=== PATIENT | female | born 1980 | race African-American/Black ===

== ENCOUNTER 2017-02-05 22:02 | Observation (INO) ==
[2017-02-05 22:47] LABS: Basophils % 0.2 % (0.0-0.8); Eosinophils # 0.2 10*3/uL (0.0-0.87); Eosinophils % 1.6 % (0.00-10.9); Hematocrit 37.2 VOL% (35.7-47.0); Hemoglobin 12.9 GM/DL (12.0-16.0); Immature Granulocytes % 0.3 %; Immature Granulocytes Absolute 0.04 #; Lymphocytes # 3.7 10*3/uL (1.4-4.0); Lymphocytes % 29.2 % (21.3-54.2); Mean Corpuscular HGB Conc 34.7 GM/DL (32-36); Mean Corpuscular Hemoglobin 29 PG (27-34); Mean Corpuscular Volume 82.1 FL (87-102); Mean Platelet Volume 9.1 FL (9.6-12.0); Monocytes # 0.8 10*3/uL (0.11-0.8); Monocytes % 6.2 % (1.7-12.7); Neutrophils # 7.8 10*3/uL (1.4-7.4); Neutrophils % 62.5 % (38.7-73.9); Platelet Count 347 T/CUMM (130-400); Red Blood Count 4.53 MC/CUMM (3.8-5.5); Red Cell Distribution Width 13.3 % (9.3-17.3); White Blood Count 12.5 T/CUMM (4-12)
--- NOTE | 2017-02-05 23:08 | Emergency Department Note ---
Arrival - Arrival Chief Complaint: Urogenital - Female Stated Complaint: Possible Miscarrage ED Nursing Triage Note: C/O POSSIBLE MISCARRIAGE. PT STATES SHE WAS CRAMPING AND NOW BLEEDING. PT STATES SHE IS 16 WEEKS GESTATION Mode of Arrival: Ambulatory Limitations: No Limitations Source: Patient Time Seen by Provider: 02/05/17 22:34 - History of Present Illness HPI Narrative: The patient complains of a miscarriage tonight. She has had lower abdominal cramping and spotting for the past 2 days. Became much worse tonight. She passed some clots and then when she thinks was a fetus. She was approximately 16 weeks . She had had no complications thus far. She denies any fever , cough, rhinorrhea, dysuria or other recent illness. Date of Last Menstrual Period: OCTOBER 2016 Allergies/Adverse Reactions: Allergies Allergy/AdvReac Type Severity Reaction Status Date / Time No Known Allergies Allergy Unverified 02/05/17 22:07 Home Medications: Home Medications Medication Instructions Recorded Confirmed Type Pnv No.95/Ferrous Fum/Folic AC 1 each PO DAILY 02/05/17 02/05/17 History [ Tablet] Review of System - Review of System 12 point system: reviewed and no additional remarkable complaints except as stated - Review of System Gastrointestinal: Present: abdominal pain Genitourinary female: Present: other (Vaginal bleeding) Medical,Surgical,& Family Hx - Medical History Medical History: noncontributory - Surgical History Surgical History: noncontributory - Family History Family History: noncontributory - Social History Smoking Status: Never smoker Frequency of Alcohol Use: None Type of Drug Use: None Exam Physical Examination: GENERAL: Alert. No acute distress. HEENT: Normocephalic and atraumatic. There is no nasal drainage. No pharyngeal erythema or exudate. NECK: Normal inspection. Supple. No lymphadenopathy or meningismus. LUNGS: No respiratory distress. Clear to auscultation bilaterally, no wheezes, rales or rhonchi. HEART: Regular rate and rhythm. ABDOMEN: Soft, nontender and nondistended with normoactive bowel sounds. BACK: Normal inspection. SKIN: Color normal. Warm and dry. EXTREMITIES: Nontender. Normal range of motion. No pedal edema. NEUROLOGICAL/PSYCHIATRIC: Alert and oriented -3 with normal mood and affect. Cranial nerves normal. No motor or sensory deficit. Vital Signs: Vital Signs Temperature 98.4 F 09/30/17 22:07 Pulse Rate 93 H 02/05/17 22:07 Respiratory Rate 18 02/05/17 22:07 Blood Pressure 145/88 02/05/17 22:07 O2 Sat by Pulse Oximetry 99 02/05/17 22:07 Course - Reevaluation(s) Reevaluation #1: I have discussed the patient with Dr. Shelton and will admit. She requests that we give 600 mcg of Cytotec vaginally. She will call the floor and give further orders Time: 01:55 Results - Labs CBC & BMP: 02/05/17 22:25 Lab Results: I have reviewed the patients labs Labs: Laboratory Tests 02/05/17 02/05/17 22:25 22:25 HCG Beta Subunit 193.0 H Urine RBC 1 Urine WBC 7 Urine Bacteria Moderate Ur Culture Indicated? Results to follow Blood type was O+ - Impressions Still awaiting official ultrasound report but per the ultrasound technologist, there was no fetus present only retained products of conception. Disposition Clinical Impression: Complete Case discussed with: patient, patient's family Disposition: Still a Patient Condition: Stable Time of Disposition: 01:56
[2017-02-05 23:13] LABS: Apearance,Urine CLEAR (Clear); Bacteria,Urine Moderate /HPF (Few); Bilirubin,Urine Negative (Negative); Blood, Urine Small mg/dL (Negative); Glucose,Urine (UA) Negative (Negative); Ketones,Urine Negative (Negative); Mucus,Urine Occasional /LPF (Occasional); Nitrite,Urine Negative (Negative); Protein,Urine Negative; RBC,Urine 1 /HPF (0-4); Squamous Epithelial Cell,Urine Occasional /HPF (0-10); Urine Color Yellow (Yellow); Urine Specific Gravity 1.005 (1.001-1.035); Urine Urobilinogen < 2.0 EU/DL (0.2-1.0); WBC,Urine 7 /HPF (0-6)
[2017-02-06] MEDS ORDERED: ONDANSETRON 4 MG/2 ML VIAL IV PRN (02:55)
[2017-02-06] MEDS ORDERED: LACTATED RINGERS 1,000 ML IV SCH ×2 (02:55→03:00)
[2017-02-06] MEDS ORDERED: ACETAMINOPHEN 325 MG TABLET PO PRN (02:55)
[2017-02-06] MEDS ORDERED: MAGNESIUM HYDROXIDE SUSP 30 ML UDCUP PO PRN (02:55)
[2017-02-06] MEDS ORDERED: BISACODYL 10 MG SUPP RECTAL PRN (02:55)
[2017-02-06] MEDS ORDERED: IBUPROFEN 800 MG TABLET PO PRN (02:55)
[2017-02-06] MEDS ORDERED: MORPHINE 2 MG/1 ML SYRINGE IV PRN (02:55)
[2017-02-06] MEDS ORDERED: KETOROLAC 30 MG/1 ML VIAL IV PRN (02:59)
[2017-02-06] MEDS ORDERED: miSOPROStol 200 MCG TABLET ONE (03:27)
[2017-02-06] MEDS ORDERED: miSOPROStol 200 MCG TABLET VAG SCH (03:30)
[2017-02-06] MEDS: miSOPROStol 200 MCG TABLET VAG SCH ×2 (03:58→09:46)
--- NOTE | 2017-02-06 07:56 | OB/GYN History & Physical ---
History of Present Illness Chief complaint: SAB History of present illness: Ms. Daly is a 36 year old female Pt came in thru the ER this morning reporting that she had passed a fetus and tissue at home. Reports that she was seen by Dr. Figueroa ~ 3 weeks ago. Concern about "fluid around the baby" and would need a [facility] referral; ~ 12 weeks at that time. Intermittent cramping and spotting started ~ 1 1/2 weeks ago. Heavier bleeding and cramping last 2 days. Currently, light to moderate flow without cramping. Cytotec placed at ~ 0330. Explained to her that based on her report, it sounds as if she has already passed all tissue. Furthermore, I would expect her bleeding and cramping to be more significant if she had not already passed tissue. Will place 2nd dose of cytotec and observe, if well, home this afternoon. Home Medications Medication Instructions Recorded Confirmed Type Pnv No.95/Ferrous Fum/Folic AC 1 each PO DAILY 02/05/17 02/05/17 History [ Tablet] Allergies Allergy/AdvReac Type Severity Reaction Status Date / Time No Known Allergies Allergy Unverified 02/05/17 22:07 Medical,Surgical,& Family Hx - Surgical History Reproductive Surgeries: Patient denies;: Genitourinary Surgery, Gynecologic Surgery - Family History Family History: Reports;: Family Stroke (grandfather) Denies;: Family Anesthesia Reaction, Family Cancer, Family Diabetes, Family Heart Disease, Family Hematology, Family Hypertension - Social History Smoking Status: Never smoker Frequency of Alcohol Use: None Type of Drug Use: None 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 Absent: tenderness Assessment and Plan (1) Complete Status: Acute Assessment and plan: Likely complete at ~ 15 weeks Quant only 153?? Home this afternoon if all is well. Current Visit: Yes Results - Labs CBC & BMP: 02/05/17 22:25
--- NOTE | 2017-02-06 08:52 | Ultrasound Report ---
Pelvic ultrasound Indication: Potential bleeding, recent miscarriage Findings: The uterine length is 13.7 cm. Endometrial thickness is 3.0 mm. Endometrium is heterogeneous in echogenicity with focal area that measures 3.9 x 2.4 cm. Uterine leiomyoma is present 1.3 x 1.2 x 0.8 cm. No other abnormal echogenicity is seen. The right ovary length is 2.1 cm. The left ovary length is 3.3 cm. No focal abnormality seen. No free fluid is identified Impression: Thickened complex endometrium with suggestion of hematoma/retained products. PROCEDURE INTERPRETED AT [facility] DEPARTMENT OF RADIOLOGY Final Report Signed by: Dr. Lamont Christiansen
[2017-02-06] MEDS ORDERED: DOCUSATE SODIUM 100 MG CAPSULE PO SCH (09:00)
[2017-02-06 11:22] VITALS: BP 117/63
== END 2017-02-06 15:15 | disposition home or self-care (01) ==
LOC: N.ED 22:02 → N.OB 22:02
PROVIDERS: ADMIT Obstetrics & Gynecology; ATTEND Obstetrics & Gynecology

== ENCOUNTER 2018-03-18 16:12 | Inpatient (IN) ==
[2018-03-18] MEDS ORDERED: AMPICILLIN INJ 2,000 MG in SODIUM CHLORIDE 0.9% 100 ML IV ONE (16:34)
[2018-03-18] MEDS ORDERED: SODIUM CHLORIDE 0.9% 100 ML IV ONE (16:36)
[2018-03-18] MEDS ORDERED: AMPICILLIN 2,000 MG VIAL ONE (16:36)
[2018-03-18] MEDS ORDERED: miSOPROStol 200 MCG TABLET VAG PRN (16:39)
[2018-03-18] MEDS ORDERED: ONDANSETRON 4 MG/2 ML VIAL IV PRN ×2 (16:39→18:25)
[2018-03-18] MEDS ORDERED: CARBOPROST TROMETHAMINE 250 MCG/ML AMP IM PRN (16:39)
[2018-03-18] MEDS ORDERED: BUTORPHANOL 2 MG/ML VIAL IV PRN (16:39)
[2018-03-18] MEDS ORDERED: MEPERIDINE 50 MG/1 ML VIAL IV PRN (16:39)
[2018-03-18] MEDS ORDERED: NALOXONE 0.4 MG/ML VIAL IV PRN (16:45)
[2018-03-18] MEDS ORDERED: PROMETHAZINE 25 MG/1 ML VIAL IM ONE (16:45)
[2018-03-18] MEDS ORDERED: diphenhydrAMINE 50 MG/1 ML VIAL IV PRN ×2 (16:45)
[2018-03-18] MEDS ORDERED: hydrOXYzine HCL 25 MG/1 ML VIAL IM PRN (16:45)
[2018-03-18] MEDS ORDERED: ePHEDrine 50 MG/ML AMP IV PRN (16:45)
[2018-03-18] MEDS ORDERED: LACTATED RINGERS 1,000 ML IV ONE (16:47)
[2018-03-18] MEDS ORDERED: CITRIC ACID/SODIUM CITRATE 30 ML UDCUP PO ONE (16:47)
[2018-03-18] MEDS ORDERED: FAMOTIDINE 20 MG/2 ML VIAL IV ONE (16:47)
[2018-03-18] MEDS ORDERED: INFLUENZA VIRUS VACCINE 0.5 ML SYRINGE IM ONE (16:52)
[2018-03-18] MEDS ORDERED: OXYTOCIN/LR 20 UNIT/1,000 ML BAG IV SCH (17:00)
[2018-03-18] MEDS ORDERED: LACTATED RINGERS 1,000 ML IV SCH (17:00)
[2018-03-18] MEDS ORDERED: fentaNYL 2 MCG/ROPIV 0.2% EPID 100 ML EPIDURAL SCH (17:00)
[2018-03-18 17:07] LABS: Basophils % 0.3 % (0.0-0.8); Eosinophils # 0.1 10*3/uL (0.0-0.87); Eosinophils % 1.4 % (0.00-10.9); Hematocrit 38.5 VOL% (35.7-47.0); Hemoglobin 13.1 GM/DL (12.0-16.0); Immature Granulocytes % 1.1 %; Lymphocytes % 20.7 % (21.3-54.2); Mean Corpuscular Hemoglobin 29 PG (27-34); Mean Corpuscular Volume 84.6 FL (87-102); Monocytes # 0.8 10*3/uL (0.11-0.8); Monocytes % 8.1 % (1.7-12.7); Neutrophils # 6.5 10*3/uL (1.4-7.4); Neutrophils % 68.4 % (38.7-73.9); Platelet Count 336 T/CUMM (130-400); Red Blood Count 4.55 MC/CUMM (3.8-5.5); Red Cell Distribution Width 14.8 % (9.3-17.3); White Blood Count 9.5 T/CUMM (4-12)
[2018-03-18] MEDS ORDERED: oxyCODONE/ACETAMINOPHEN 5-325 MG TABLET PO PRN ×2 (18:25)
[2018-03-18] MEDS ORDERED: ACETAMINOPHEN 325 MG TABLET PO PRN (18:25)
[2018-03-18] MEDS ORDERED: OXYTOCIN/LR 20 UNIT/1,000 ML BAG IV ONE (18:25)
[2018-03-18] MEDS ORDERED: MEASLES/MUMPS/RUBELLA VACCINE 0.5 ML VIAL SUBCUT ONE (18:25)
[2018-03-18] MEDS ORDERED: HYDROCORTISONE 2.5% RECTAL CREAM 30 GM TUBE TOP PRN (18:25)
[2018-03-18] MEDS ORDERED: LANOLIN 50% CREAM 0.3 OZ TUBE TOP PRN (18:25)
[2018-03-18] MEDS ORDERED: BISACODYL 10 MG SUPP RECTAL PRN (18:25)
[2018-03-18] MEDS ORDERED: RHO(D) IMMUNE GLOBULIN 300 MCG SYRINGE IM ONE (18:25)
[2018-03-18] MEDS ORDERED: BENZOCAINE 20%/MENTHOL 0.5% SPRAY 56 GM CAN TOP PRN (18:25)
[2018-03-18] MEDS ORDERED: WITCH HAZEL PADS 100/JAR TOP PRN (18:25)
[2018-03-18] MEDS ORDERED: DIPH/TET/ACEL PERT BOOSTER VACCINE 0.5 ML VIAL IM ONE (18:25)
[2018-03-19 06:21] LABS: Basophils % 0.2 % (0.0-0.8); Eosinophils # 0.1 10*3/uL (0.0-0.87); Eosinophils % 0.3 % (0.00-10.9); Hematocrit 34.9 VOL% (35.7-47.0); Hemoglobin 11.8 GM/DL (12.0-16.0); Immature Granulocytes % 0.9 %; Immature Granulocytes Absolute 0.14 #; Lymphocytes # 1.7 10*3/uL (1.4-4.0); Lymphocytes % 10.8 % (21.3-54.2); Mean Corpuscular HGB Conc 33.8 GM/DL (32-36); Mean Corpuscular Hemoglobin 28 PG (27-34); Mean Corpuscular Volume 83.3 FL (87-102); Mean Platelet Volume 9.3 FL (9.6-12.0); Monocytes # 1.1 10*3/uL (0.11-0.8); Monocytes % 7.1 % (1.7-12.7); Neutrophils # 12.4 10*3/uL (1.4-7.4); Neutrophils % 80.7 % (38.7-73.9); Platelet Count 282 T/CUMM (130-400); Red Blood Count 4.19 MC/CUMM (3.8-5.5); Red Cell Distribution Width 14.8 % (9.3-17.3); White Blood Count 15.3 T/CUMM (4-12)
[2018-03-19] MEDS: IBUPROFEN 800 MG TABLET PO PRN ×2 (07:36→21:26)
[2018-03-19] MEDS: DOCUSATE SODIUM 100 MG CAPSULE PO SCH ×4 (13:17→21:26)
[2018-03-20] MEDS: IBUPROFEN 800 MG TABLET PO PRN (04:23)
[2018-03-20] MEDS ORDERED: INFLUENZA VIRUS VACCINE 0.5 ML SYRINGE IM ONE (09:28)
[2018-03-20] MEDS: DOCUSATE SODIUM 100 MG CAPSULE PO SCH (09:51)
[2018-03-20 12:04] VITALS: BP 127/77
== END 2018-03-20 11:30 | disposition home or self-care (01) | DRG 560 ==
LOC: N.LDOUT 16:12 → N.LD 16:13
PROVIDERS: ATTEND Obstetrics & Gynecology